=== PATIENT | female | born 1995 | race Two or more races ===

== ENCOUNTER 2024-11-11 13:36 | Outpatient (RCR) | payer MEDICAID, SELFPAY | END 2024-12-03 23:59 | disposition home or self-care (01) | LOC: SCTC 13:36 | PROVIDERS: PCP Physician Assistant; Referring Provider Physician Assistant; Visit Provider Nurse Practitioner Family | DX: Z09 Encounter for follow-up examination after completed treatment for conditions other than malignant neoplasm (principal); Z86.2 Personal history of diseases of the blood and blood-forming organs and certain disorders involving the immune mechanism; N92.0 Excessive and frequent menstruation with regular cycle | CPT/HCPCS: 99212; G0463 ==